=== PATIENT | male | born 1980 | race Caucasian/White ===

== ENCOUNTER 2016-09-10 15:03 | Emergency (ER) | payer SELFPAY ==
[~2016-09-10] VITALS: Ht 185.4 cm; Wt 99.8 kg
[2016-09-10 17:11] LABS: BILIRUBIN,URINE SMALL (NEG); GLUCOSE,URINE NEGATIVE (NEG); NITRITE,URINE NEGATIVE (NEG); PROTEIN,URINE NEGATIVE (NEG-TRACE)
[2016-09-10] MEDS ORDERED: FENTANYL PF 100 MCG/2 ML VIAL. IV ONE (17:15)
[2016-09-10 17:28] LABS: BACTERIA,URINE 0 /HPF (0-FEW); RBC,URINE 0 /HPF (0-2); WBC,URINE OCC /HPF (0-4)
[2016-09-10 17:29] LABS: BASO # 0.1 x10^3/uL (0.0-0.2); BASO % 1 % (0-3); EOS % 2 % (0-3); HEMATOCRIT 40.2 % (39.0-53.0); HEMOGLOBIN 13.4 g/dL (13.0-17.5); LYMPH # 1.6 x10^3/uL (1.0-4.8); LYMPH % 22 % (24-48); MEAN CORPUSCULAR HEMOGLOBIN 29 pg (25-35); MEAN CORPUSCULAR HGB CONC 34 g/dL (31-37); MEAN CORPUSCULAR VOLUME 87 fL (79-100); MONO % 11 % (0-9); NEUT % 64 % (31-73); PLATELET COUNT 354 x10^3/uL (140-400); RED BLOOD COUNT 4.61 x10^6/uL (4.30-5.70); RED CELL DISTRIBUTION WIDTH 12.4 % (11.5-14.5); WHITE BLOOD COUNT 7.5 x10^3/uL (4.0-11.0)
[2016-09-10 17:41] LABS: CALCIUM 8.9 mg/dL (8.5-10.1); CREATININE 1.2 mg/dL (0.7-1.3); GFR 68.1; POTASSIUM 4.4 mmol/L (3.5-5.1)
[2016-09-10] MEDS ORDERED: CONTRAST GIVEN MC PRN (18:15)
[2016-09-10] MEDS ORDERED: IOHEXOL 300 MG/ML 75 ML VIAL IV ONE (18:15)
--- NOTE | 2016-09-10 18:38 | RAD ---
PROCEDURE CT study of the abdomen and pelvis with contrast HISTORY Left groin pain for 1 week. Possible hernia. TECHNIQUE After IV infusion of 75 milliliters of Omnipaque 300, helical CT scanning of the abdomen and pelvis was performed. No GI contrast was administered. This may decrease the sensitivity to detect GI tract pathology. One or more of the following individualized dose reduction techniques were utilized for this study: 1. Automated exposure control 2. Adjustment of the mA and/or kV according to patient size 3. Use of iterative reconstruction technique COMPARISON None available. FINDINGS There is a small cyst of the lateral aspect of the anterior segment of the right lobe of the liver. There is a small cyst of the posterior segment of the right lobe of the liver. The spleen is not enlarged. The pancreas and gallbladder are normal. No biliary ductal dilatation is seen. No adrenal mass is evident. Both kidneys are normal without hydronephrosis. The urinary bladder wall is smooth. No focal aneurysmal dilatation of the abdominal aorta is seen. No enlarged abdominal lymphadenopathy is seen. The appendix is normal. The terminal ileum is unremarkable. No obstructive bowel pattern is seen. No osteolytic process is seen. No lung base consolidation is evident. There is inflammatory change of the left inguinal area. There is a central hypodense area which measures 35 Hounsfield units. Therefore this is not of fluid consistency. There are some adjacent reactive lymph nodes. Largest lymph node measures 26 millimeters. This does not communicate with the anterior abdominal wall musculature or abdominal cavity or inguinal canal. Therefore this does not represent a hernia. Overall, the entire process measures 6.7 centimeters in greatest dimension. IMPRESSION Inflammatory process with reactive lymphadenopathy of the left inguinal area without discrete liquefied drainable abscess. No hernia is seen here. Electronically signed by: Oliver Siegel MD (Sep 10, 2016 18:37:07)
[2016-09-10 19:09] VITALS: BP 124/83
[2016-09-10] MEDS ORDERED: AMOX1TAB61 PO (19:26)
--- NOTE | 2016-09-10 19:26 | PHYS DOC ---
Past Medical History Past Medical History: Bipolar Additional Past Medical Histor: ETOH and Drug Abuse Past Surgical History: No Surgical History Alcohol Use: Sober Drug Use: Cocaine, Marijuana Social History Narrative: LSD, oxycontin, morphine Adult General Chief Complaint Chief Complaint: GROIN PAIN HPI HPI Patient is a 35 year old male who presents with left groin pain and swelling over the past 1.5 week. States he has intermittent swelling and purple discoloration. States his pain is achy, constant, worse when swelling is present. He denies dysuria, penile discharge, testicle pain or swelling, constipation, diarrhea, abdominal pain, nausea or vomiting, fever or chills. States he was seen by a chiropractor and told he likely has an inguinal hernia. Review of Systems Review of Systems Constitutional: Denies fever or chills [] Eyes: Denies change in visual acuity, redness, or eye pain [] HENT: Denies nasal congestion or sore throat [] Respiratory: Denies cough or shortness of breath [] Cardiovascular: No additional information not addressed in HPI [] GI: Denies abdominal pain, nausea, vomiting, bloody stools or diarrhea [] : Denies dysuria or hematuria [] Musculoskeletal: Denies back pain or joint pain [] Integument: Denies rash or skin lesions [] Neurologic: Denies headache, focal weakness or sensory changes [] Endocrine: Denies polyuria or polydipsia [] Current Medications Current Medications Current Medications Medications (Trade) Dose Ordered Sig/Gagan Start Time Stop Time Status Last Admin Dose Admin Fentanyl Citrate (Fentanyl 2ml Vial) 50 mcg 1X ONCE 09/10/16 17:15 09/10/16 17:16 DC 09/10/16 17:17 50 MCG Info (Do NOT chart on this entry -- for MONITORING) 1 each PRN DAILY PRN 09/10/16 18:15 09/10/16 19:43 DC Iohexol (Omnipaque 300 Mg/ml) 75 ml 1X ONCE 09/10/16 18:15 09/10/16 18:16 DC 09/10/16 18:07 75 ML Allergies Allergies Allergies Coded Allergies Type Severity Reaction Last Updated Verified No Known Drug Allergies 09/10/16 No Physical Exam Physical Exam Constitutional: Well developed, well nourished, no acute distress, non-toxic appearance. [] HENT: Normocephalic, atraumatic, bilateral external ears normal, oropharynx moist, nose normal. [] Eyes: PERRLA, EOMI. [] Neck: Normal range of motion, supple. [] Cardiovascular:Heart rate regular rhythm [] Lungs & Thorax: Bilateral breath sounds clear to auscultation [] Abdomen: Bowel sounds normal, soft, no tenderness. [] Genitourinary: Fullness to the left inguinal area with palpable lymphadenopathy , minimal tenderness, slight redness to overlying skin, no palpable hernia, normal cord, appropriately tender testicles, normal visual and palpable scrotum , no penile drip or lesion Skin: Warm, dry, no erythema, no rash. [] Back: Normal range of motion. [] Extremities: ROM intact, no edema. [] Neurologic: Alert and oriented X 3, normal motor function, normal sensory function, no focal deficits noted. [] Psychologic: Affect normal, judgement normal, mood normal. [] Current Patient Data Vital Signs Vital Signs Date Time Temp Pulse Resp B/P Pulse Ox O2 Delivery O2 Flow Rate FiO2 09/10/16 19:09 84 20 124/83 99 Room Air 09/10/16 16:15 98.2 98.2 Lab Values Laboratory Tests Test 09/10/16 16:12 09/10/16 17:10 Urine Collection Type Unknown Urine Color Dk yellow Urine Clarity Clear Urine pH 6.0 Urine Specific [place] >=1.030 Urine Protein Negativemg/dL (NEG-TRACE) Urine Glucose (UA) Negativemg/dL (NEG) Urine Ketones (Stick) Tracemg/dL (NEG) Urine Blood Negative (NEG) Urine Nitrite Negative (NEG) Urine Bilirubin Small (NEG) Urine Urobilinogen Dipstick 1.0mg/dL (0.2 mg/dL) Urine Leukocyte Esterase Negative (NEG) Urine RBC 0/HPF (0-2) Urine WBC Occ/HPF (0-4) Urine Bacteria 0/HPF (0-FEW) Urine Hyaline Casts Occasional/HPF Urine Mucus Marked/LPF White Blood Count 7.5x10^3/uL (4.0-11.0) Red Blood Count 4.61x10^6/uL (4.30-5.70) Hemoglobin 13.4g/dL (13.0-17.5) Hematocrit 40.2% (39.0-53.0) Mean Corpuscular Volume 87fL (79-100) Mean Corpuscular Hemoglobin 29pg (25-35) Mean Corpuscular Hemoglobin Concent 34g/dL (31-37) Red Cell Distribution Width 12.4% (11.5-14.5) Platelet Count 354x10^3/uL (140-400) Neutrophils (%) (Auto) 64% (31-73) Lymphocytes (%) (Auto) 22% (24-48) L Monocytes (%) (Auto) 11% (0-9) H Eosinophils (%) (Auto) 2% (0-3) Basophils (%) (Auto) 1% (0-3) Neutrophils # (Auto) 4.8x10^3uL (1.8-7.7) Lymphocytes # (Auto) 1.6x10^3/uL (1.0-4.8) Monocytes # (Auto) 0.8x10^3/uL (0.0-1.1) Eosinophils # (Auto) 0.1x10^3/uL (0.0-0.7) Basophils # (Auto) 0.1x10^3/uL (0.0-0.2) Sodium Level 143mmol/L (136-145) Potassium Level 4.4mmol/L (3.5-5.1) Chloride Level 105mmol/L (98-107) Carbon Dioxide Level 29mmol/L (21-32) Anion Gap 9 (6-14) Blood Urea Nitrogen 6mg/dL (8-26) L Creatinine 1.2mg/dL (0.7-1.3) Estimated GFR (Cockcroft-Gault) 68.1 Glucose Level 96mg/dL (70-99) Lactic Acid Level 1.4mmol/L (0.4-2.0) Calcium Level 8.9mg/dL (8.5-10.1) Laboratory Tests 09/10/16 17:10 Laboratory Tests 09/10/16 17:10 Radiology/Procedures Radiology/Procedures CT abdomen and pelvis with IV contrast IMPRESSION Inflammatory process with reactive lymphadenopathy of the left inguinal area without discrete liquefied drainable abscess. No hernia is seen here. Electronically signed by: Oliver Siegel MD (Sep 10, 2016 18:37:07) Course & Med Decision Making Course & Med Decision Making Pertinent Labs and Imaging studies reviewed. (See chart for details) Imaging remarkable as above without evidence of hernia. Laboratory evaluation is unremarkable. Discussed my concern with inguinal lymphadenopathy as possible local reaction versus infectious reaction versus other. Sent urine GC/chlam and discussed he will only be called for a positive result. Discussed importance of close follow-up with primary care for further testing. Will give trial of antibiotics for lymphadenitis. Return precautions given. He understands and agrees with plan. Dragon Disclaimer Dragon Disclaimer This electronic medical record was generated, in whole or in part, using a voice recognition dictation system. Departure Departure Impression: Primary Impression: Lymphadenitis, acute Disposition: HOME, SELF-CARE Condition: STABLE Referrals: ABHINAV MURRAY (PCP) Patient Instructions: Lymphangitis, Pediatric Additional Instructions: Take Augmentin for possible lymph node infection. Take Tylenol or ibuprofen as needed for moderate pain. Take hydrocodone as needed for severe pain. Do not drink, drive or operate heavy machinery after taking hydrocodone as it may make you sleepy. Follow-up with your primary care doctor. Return for any concerns. Scripts Hydrocodone Bit/Acetaminophen (Hydrocodone-Apap 5-325 )1 Each Tablet1-2 Tab PO PRN Q6HRS PRN PAIN #20 TAB Prov:Chrissy MELARA MD 09/10/16 Amoxicillin/Potassium Clav (Augmentin 875-125 Tablet)1 Each Tablet1 Tab PO BID # 14 TAB Prov:Chrissy MELARA MD 09/10/16 Chrissy MELARA MD Sep 10, 2016 19:26
[2016-09-10] MEDS ORDERED: HYDR-2666 PO (19:27)
== END 2016-09-10 19:35 | disposition home or self-care (01) ==
LOC: ER 15:03
DX: L04.9 Acute lymphadenitis, unspecified (principal); R10.30 Lower abdominal pain, unspecified; F31.9 Bipolar disorder, unspecified; F12.10 Cannabis abuse, uncomplicated; F11.10 Opioid abuse, uncomplicated; F14.10 Cocaine abuse, uncomplicated
CPT/HCPCS: 36415; 74177; 80048; 81001; 83605; 85027; 87491; 87591; 96374; 99285; J3010; Q9967